=== PATIENT | female | born 1980 | race Caucasian/White ===

== ENCOUNTER 2022-12-06 05:39 | Day surgery (SDC) | payer BC ==
[2022-12-05 09:30] VITALS: BMI 21.7
[2022-12-06] MEDS ORDERED: Lidocaine 1% w/Epinephrine 1:100K 30 ML VIAL ONE (06:42)
[2022-12-06] MEDS ORDERED: CEFAZOLIN 1 GM VIAL ONE (06:51)
[2022-12-06] MEDS ORDERED: Midazolam HCl 2 mg/2 ml Vial ONE (06:54)
[2022-12-06] MEDS ORDERED: Scopolamine 1.5 mg/72 hour Patch ONE (06:54)
[2022-12-06] MEDS ORDERED: Famotidine/PF 20 mg/2ml Vial ONE (06:55)
[2022-12-06] MEDS ORDERED: PROPOFOL 40 ML ONE (06:58)
[2022-12-06] MEDS ORDERED: Dexamethasone 20 MG/5 ML VIAL ONE (06:59)
[2022-12-06] MEDS ORDERED: Fentanyl 100 MCG/2 ML VIAL ONE ×2 (06:59→07:18)
[2022-12-06] MEDS ORDERED: Rocuronium Bromide 10 MG/ML (10ML VIAL) ONE (06:59)
[2022-12-06] MEDS ORDERED: Ondansetron PF 4 MG/2 ML Vial ONE (06:59)
[2022-12-06] MEDS ORDERED: Lidocaine 1% PF 5 ML VIAL ONE (07:00)
[2022-12-06] MEDS ORDERED: Esmolol 100 MG/10 ML VIAL ONE (07:25)
[2022-12-06] MEDS ORDERED: Glycopyrrolate 0.2 MG/ML 5 ML SYRINGE ONE (07:31)
[2022-12-06] MEDS ORDERED: HYDROcodone/Acetaminophen 5/325 mg Tablet ONE (09:06)
== END 2022-12-06 10:20 | disposition home or self-care (01) ==
LOC: CSHSDC 05:39
PROVIDERS: ATTEND Otolaryngology Otolaryngic Allergy
PROC: 0GBH0ZZ Excision of Right Thyroid Gland Lobe, Open Approach (ICD-10-PCS; principal; 2022-12-06)
DX: D34 Benign neoplasm of thyroid gland (principal); E04.1 Nontoxic single thyroid nodule; R89.9 Unspecified abnormal finding in specimens from other organs, systems and tissues; I10 Essential (primary) hypertension; Z87.42 Personal history of other diseases of the female genital tract
CPT/HCPCS: 88307; J0690; J1100; J2250; J2405; J2704; J3010; S0028